=== PATIENT | female | born 1965 | race Caucasian/White ===

== ENCOUNTER 2017-07-09 15:16 | Outpatient (CLI) | payer OTHER ==
[2017-07-09 16:02] LABS: ALBUMIN 4.6 g/dL (3.2-5.5); ALBUMIN/GLOBULIN RATIO 1.5 (1.0-2.2); ALKALINE PHOSPHATASE 73 IU/L (42-121); ALT ALANINE AMINOTRANSFERASE 22 IU/L (10-60); AST ASPARTATE AMINOTRANSFERASE 23 IU/L (10-42); BILIRUBIN,TOTAL 0.7 mg/dL (0.2-1.0); BUN - BLOOD UREA NITROGEN 18 mg/dL (6-20); CALCIUM 9.5 mg/dL (8.5-10.3); CARBON DIOXIDE - CO2 25 mmol/L (21-32); CHLORIDE 99 mmol/L (101-111); CHOL/HDL RATIO 4.2 (<4.4); CHOLESTEROL 288 mg/dL; CREATININE 0.6 mg/dL (0.4-1.0); GFR - MDRD 105 (>89); GLUCOSE 102 mg/dL (70-100); HDL CHOLESTEROL 68 mg/dL; LDL CHOLESTEROL,CALCULATED 178 mg/dL; LDL/HDL RATIO 2.6 (<4.4); SODIUM 131 mmol/L (135-145); TOTAL PROTEIN 7.6 g/dL (6.7-8.2); VLDL CHOLESTEROL 42 mg/dL
[2017-07-09 16:03] LABS: HB2 TOTAL 15.4 g/dL; HEMOGLOBIN A1C 0.55 g/dL; HEMOGLOBIN A1C % 5.4 % (4.6-6.2)
[2017-07-09 16:07] LABS: BASOPHILS % (AUTO) 0.6 %; EOSINOPHILS # (AUTO) 0.1 10^3/uL (0.0-0.7); EOSINOPHILS % (AUTO) 1.2 %; LYMPHOCYTES # (AUTO) 1.9 10^3/uL (1.5-3.5); LYMPHOCYTES % (AUTO) 31.8 %; MEAN CORPUSCULAR HEMOGLOBIN 32.1 pg (27.0-31.0); MEAN CORPUSCULAR HGB CONC 33.6 g/dL (32.0-36.0); MEAN CORPUSCULAR VOLUME 95.7 fL (81.0-99.0); MEAN PLATELET VOLUME 8.8 fL (7.9-10.8); MONOCYTES # (AUTO) 0.5 10^3/uL (0.0-1.0); MONOCYTES % (AUTO) 8.3 %; NEUTROPHILS # (AUTO) 3.4 10^3/uL (1.5-6.6); NEUTROPHILS % (AUTO) 58.1 %; PLT - PLATELET COUNT 227 10^3/uL (130-450); RED BLOOD COUNT 4.37 10^6/uL (4.20-5.40); RED CELL DISTRIBUTION WIDTH 14.2 % (12.0-15.0); WHITE BLOOD COUNT 5.9 x10^3/uL (4.8-10.8)
== END 2017-07-09 15:17 | disposition home or self-care (01) ==
LOC: LAB 15:16
PROVIDERS: ATTEND Family Medicine
DX: I10 Essential (primary) hypertension (principal); R73.01 Impaired fasting glucose
CPT/HCPCS: 36415; 80053; 80061; 83036; 83721; 84443; 85025

== ENCOUNTER 2018-06-18 13:17 | Outpatient (CLI) | payer OTHER ==
[~2018-06-18 13:17] MED LIST: ALBUTEROL NEB 2.5 MG/3 ML INH ONE
== END 2018-06-18 13:18 | disposition home or self-care (01) ==
LOC: RT 13:17
PROVIDERS: ATTEND Physician Assistant
DX: R06.02 Shortness of breath (principal)
CPT/HCPCS: 94010; 94729

== ENCOUNTER 2019-05-20 07:00 | Outpatient (CLI) | payer OTHER ==
[2019-05-20 12:45] LABS: BASOPHILS % (AUTO) 0.7 %; EOSINOPHILS # (AUTO) 0.1 10^3/uL (0.0-0.7); EOSINOPHILS % (AUTO) 1.6 %; HGB - HEMOGLOBIN 13.5 g/dL (12.0-16.0); LYMPHOCYTES # (AUTO) 1.5 10^3/uL (1.5-3.5); LYMPHOCYTES % (AUTO) 26.1 %; MEAN CORPUSCULAR HEMOGLOBIN 31.5 pg (27.0-31.0); MEAN CORPUSCULAR HGB CONC 31.3 g/dL (32.0-36.0); MEAN CORPUSCULAR VOLUME 100.5 fL (81.0-99.0); MEAN PLATELET VOLUME 10.4 fL (7.9-10.8); MONOCYTES # (AUTO) 0.5 10^3/uL (0.0-1.0); MONOCYTES % (AUTO) 8.8 %; NEUTROPHILS # (AUTO) 3.6 10^3/uL (1.5-6.6); NEUTROPHILS % (AUTO) 62.3 %; PLT - PLATELET COUNT 247 10^3/uL (130-450); RED BLOOD COUNT 4.29 10^6/uL (4.20-5.40); RED CELL DISTRIBUTION WIDTH 13.2 % (12.0-15.0); WHITE BLOOD COUNT 5.7 x10^3/uL (4.8-10.8)
[2019-05-20 13:05] LABS: HB2 TOTAL 13.6 g/dL; HEMOGLOBIN A1C 0.49 g/dL; HEMOGLOBIN A1C % 5.4 % (4.6-6.2)
[2019-05-20 13:23] LABS: ALBUMIN 4.1 g/dL (3.2-5.5); ALBUMIN/GLOBULIN RATIO 1.2 (1.0-2.2); ALKALINE PHOSPHATASE 69 IU/L (42-121); ALT ALANINE AMINOTRANSFERASE 38 IU/L (10-60); AST ASPARTATE AMINOTRANSFERASE 35 IU/L (10-42); BILIRUBIN,TOTAL 0.4 mg/dL (0.2-1.0); BUN - BLOOD UREA NITROGEN 20 mg/dL (6-20); CALCIUM 9.1 mg/dL (8.5-10.3); CARBON DIOXIDE - CO2 24 mmol/L (21-32); CHLORIDE 105 mmol/L (101-111); CHOL/HDL RATIO 4.8 (<4.4); CHOLESTEROL 299 mg/dL; CREATININE 0.7 mg/dL (0.4-1.0); GFR - MDRD 88 (>89); GLUCOSE 108 mg/dL (70-100); HDL CHOLESTEROL 62 mg/dL; LDL CHOLESTEROL,CALCULATED 200 mg/dL; LDL/HDL RATIO 3.2 (<4.4); SODIUM 138 mmol/L (135-145); TOTAL PROTEIN 7.6 g/dL (6.7-8.2); VLDL CHOLESTEROL 37 mg/dL
== END 2019-05-20 23:59 | disposition home or self-care (01) ==
LOC: LAB.WCP 07:00
PROVIDERS: ATTEND Nurse Practitioner Family
DX: R73.01 Impaired fasting glucose (principal); I10 Essential (primary) hypertension; F32.9 Major depressive disorder, single episode, unspecified
CPT/HCPCS: 36415; 80053; 80061; 83036; 83721; 84443; 85025

== ENCOUNTER 2019-07-14 07:00 | Outpatient (CLI) | payer OTHER ==
[2019-07-14 17:24] LABS: CALCIUM 9.8 mg/dL (8.5-10.3); CREATININE 0.8 mg/dL (0.4-1.0)
== END 2019-07-14 23:59 | disposition home or self-care (01) ==
LOC: LAB.WCP 07:00
PROVIDERS: ATTEND Nurse Practitioner Family
DX: I10 Essential (primary) hypertension (principal)
CPT/HCPCS: 36415; 80048

== ENCOUNTER 2021-01-07 09:46 | Outpatient (CLI) | payer OTHER ==
--- NOTE | 2021-01-08 08:52 | Mammography Report ---
BILATERAL DIGITAL SCREENING MAMMOGRAM 3D/2D: 01/07/2021 CLINICAL: Routine screening. Comparison is made to exam dated: 08/16/2015 mammogram - [facility]. There are scat tered fibroglandular elements in both breasts. There is an irregular equal density global asymmetry with an indistinct margin in the left breast pos terior depth superior region seen on the mediolateral oblique view only. No other significant masses, calcifications, or other findings are seen in either breast. IMPRESSION: INCOMPLETE: NEEDS ADDITIONAL IMAGING EVALUATION The irregular equal density global asymmetry in the left breast is indeterminate. Mediolateral, exag gerated CC, and spot compression views as well as additional views with possible ultrasound are recom mended. This exam was interpreted at Station ID: [id number]. NOTE: For mammograms, a report in lay terms will be sent to the patient. Approximately 15% of breast malignancies will not be visualized mammographically. In the management of a palpable breast mass, a negative mammogram must not discourage biopsy of a clinically suspicious lesion. Electronically Signed By: Austin Alarcon M.D. ddp/:01/07/2021 10:55:46 ACR BI-RADS Category 0: Incomplete 3340F PARENCHYMAL PATTERN: (A) - The breast(s) demonstrate(s) scattered fibroglandular densities. BI-RADS CATEGORY: (0) - 0 Mammo and [place] [id number] Immediate follow-up LATERALITY: (B)
== END 2021-01-07 09:47 | disposition home or self-care (01) ==
LOC: DI.N 09:46
DX: Z12.31 Encounter for screening mammogram for malignant neoplasm of breast (principal); R92.8 Other abnormal and inconclusive findings on diagnostic imaging of breast

== ENCOUNTER 2021-03-01 11:03 | Outpatient (CLI) | payer OTHER ==
--- NOTE | 2021-03-04 15:22 | Mammography Report ---
UNILATERAL LEFT DIGITAL DIAGNOSTIC MAMMOGRAM 3D/2D: 03/01/2021 CLINICAL: Patient returns today to evaluate an asymmetry in the left breast. Comparison is made to exams dated: 01/07/2021 mammogram and 08/16/2015 mammogram - [facility]. There are scattered fibroglandular elements in left breast. The previously seen asymmetry in the left axillary tail/axilla is no longer present, possibly seconda ry to soft tissue edema (patient had left arm vaccination before the prior study) or artifact on the prior exam. No significant masses, calcifications, or other findings are seen in the breast. IMPRESSION: NEGATIVE There is no mammographic evidence of malignancy. A 1 year screening mammogram is recommended. This exam was interpreted at Station ID: [id number]. NOTE: For mammograms, a report in lay terms will be sent to the patient. Approximately 15% of breast malignancies will not be visualized mammographically. In the management of a palpable breast mass, a negative mammogram must not discourage biopsy of a clinically suspicious lesion. Electronically Signed By: Mateus thomas/[email or web address]:03/01/2021 11:55:01 ACR BI-RADS Category 1: Negative 3341F PARENCHYMAL PATTERN: (A) - The breast(s) demonstrate(s) scattered fibroglandular densities. BI-RADS CATEGORY: (1) - 1 RECOMMENDATION: (ANNUAL) - Recommend routine annual screening mammography. [id number] 1 year screening LATERALITY: (B)
== END 2021-03-01 11:04 | disposition home or self-care (01) ==
LOC: DI 11:03
PROVIDERS: ATTEND Family Medicine
DX: R92.8 Other abnormal and inconclusive findings on diagnostic imaging of breast (principal)

== ENCOUNTER 2021-06-29 20:38 | Emergency (ER) | payer OTHER ==
[2021-06-29 20:46] VITALS: BP 137/76
[2021-06-29] MEDS ORDERED: BUPIVACAINE 0.5% PF 10 ML VIAL SUBQ STA (21:02)
[2021-06-29] MEDS ORDERED: cefTRIAXone 1 GM VIAL IM STA (21:03)
[2021-06-29] MEDS ORDERED: TETANUS/DIPHTHERIA/PERTUSSIS 0.5 ML SYRINGE IM ONE (21:03)
--- NOTE | 2021-06-29 21:03 | ED Physician Documentation ---
History of Present Illness - Stated complaint Stated Complaint: R FINGER LAC - Chief complaint Chief Complaint: Ext Problem - Additonal information Additional information: 55-year-old female presents emergency department for evaluation of dog bite laceration to the distal tip of her right index finger. She was her dogs when her finger inadvertently got caught in it. She reports their shots is up-to-date. She is unsure of her own tetanus status. She is right-hand dominant. PD PAST MEDICAL HISTORY - Present Medications Home Medications: Ambulatory Orders Medication Instructions Recorded Confirmed Amox/Clav 875/125 [Augmentin] 1 each PO Q12H #14 tablet 06/29/21 - Allergies Allergies/Adverse Reactions: Allergies Allergy/AdvReac Type Severity Reaction Status Date / Time No Known Drug Allergies Allergy Verified 06/29/21 20:56 PD ED PE EXPANDED - Extremities Extremities: Right finger(s) (2 cm laceration distal dorsum of index finger as well as a 2 cm laceration volar surface distal index finger. Preserved flexion and extension against resistance. Normal sensation brisk cap refill) Results - Vitals Vitals: Vital Signs - 24 hr 06/29/21 20:41 Temperature 35.8 C L Heart Rate 84 Respiratory 18 Rate Blood Pressure 137/76 H O2 Saturation 97 Oxygen O2 Source Room air Procedures - Laceration (location) right index finger Length in cm: 4 Wound type: Irregular, Into subcut fat, Into muscle, Contaminated Neurovascular status: Sensory intact, Motor intact, Vascular intact Tendon involvement: Tendon intact Anesthesia: Marcaine 0.5% Wound preparation: Hibiclens, Irrigated copiously NS, Debrided moderately Skin layer closure: Nylon, Interrupted, Sutures - enter # (4) Other: Patient tolerated well, No complications, Tetanus UTD PD MEDICAL DECISION MAKING - ED course Complexity details: reviewed results, re-evaluated patient, considered differential, d/w patient ED course: 55-year-old female presents to the emergency department for evaluation of a dog bite laceration to the dorsum and volar surface of her distal right index finger. She was breaking up a dog fight between her 2 dogs at home. On presentation she has intact tendon function and preserved distal sensation. Given that these were dog bite injuries we did update her tetanus. We also copiously irrigated with saline after washing thoroughly with chlorhexidine. Patient was given ceftriaxone here in the emergency department and will be discharged with Augmentin. The wounds were simply tacked down but given the high risk of infection were not formally closed with more than 2 sutures of each puncture/laceration wound. Emergent return precautions were discussed for worsening pain or concerns of infection. Departure - Departure Disposition: 01 Home, Self Care Clinical Impression: Injury caused by dog bite Qualifiers: Encounter type: initial encounter Qualified Code(s): W54.0XXA - Bitten by dog, initial encounter Finger laceration Qualifiers: Encounter type: initial encounter Finger: index finger Damage to nail status: without damage Foreign body presence: without foreign body Laterality: right Qualified Code(s): S61.210A - Laceration without foreign body of right index finger without damage to nail, initial encounter Instructions: ED Bite Dog Ch Prescriptions: Amox/Clav 875/125 [Augmentin] 1 each PO Q12H #14 tablet Comments: Guerline you were seen today in the emergency department for 2 lacerations to the distal tip of your index finger after breaking up a dog fight. We simply tacked these lacerations down as dog bite wounds do carry a high risk of infection. We updated your tetanus today and it should be good for the next 7 to 10 years. Please fill the prescription for the Augmentin and begin taking twice daily for the next week. In general tomorrow you can gently remove your bandages wash with warm soap and water, apply any antibiotic ointment and then please reapply the splint to keep the finger in extension. This will allow the tissues to heal. In general ibuprofen and Tylenol [id number] should be adequate for pain control. Elevating the finger will also help reduce swelling and pain. If at any point you have concerns of infection such as fever, redness milky drainage increased pain then please return immediately to the ER for a second evaluation. Your prescriptions have been sent electronically to the [facility] in [place]
== END 2021-06-29 21:52 | disposition home or self-care (01) ==
LOC: ED 20:38
DX: S61.250A Open bite of right index finger without damage to nail, initial encounter (principal); W54.0XXA Bitten by dog, initial encounter; Y93.K9 Activity, other involving animal care
CPT/HCPCS: 12002; 90471; 99283

== ENCOUNTER 2021-08-21 06:56 | Outpatient (CLI) | payer OTHER ==
--- NOTE | 2021-08-21 08:56 | Ultrasound Report ---
PROCEDURE: Abdomen Complete INDICATIONS: ABD PAIN TECHNIQUE: Real-time scanning was performed of the abdominal and retroperitoneal organs, with image documentatio n. COMPARISON: None. FINDINGS: AORTA: The visualized abdominal aorta is normal. IVC: The visualized IVC is normal. LIVER: Measures 18.4 cm in length. Normal contour. Increased echogenicity. The portal vein is paten t. PANCREAS: The visualized portions of the pancreas are normal. Gallbladder and biliary tree: Within normal limits. The common bile duct measures 2.7 mm. RIGHT KIDNEY: Normal in appearance with no hydronephrosis. Measuring 11.1 cm in length. The renal c ortex thickness measures 1.5 cm. LEFT KIDNEY: Normal in appearance with no hydronephrosis. Measuring 11.5 cm in length. The renal co rtex thickness measures 1.5 cm. Spleen: Normal appearance measuring 9.5 cm No evidence for ascites. IMPRESSION: 1.Hepatic steatosis and hepatomegaly. Reviewed by: Casa Todd MD on 08/21/2021 8:55 AM PDT Approved by: Casa Todd MD on 08/21/2021 8:55 AM PDT Station ID: [id number]
== END 2021-08-21 06:57 | disposition home or self-care (01) ==
LOC: DI 06:56
PROVIDERS: ATTEND Family Medicine
DX: K76.0 Fatty (change of) liver, not elsewhere classified (principal); R16.0 Hepatomegaly, not elsewhere classified; Z80.0 Family history of malignant neoplasm of digestive organs

== ENCOUNTER 2023-04-20 08:52 | Day surgery (SDC) | payer OTHER ==
[2023-04-20] MEDS ORDERED: LACTATED RINGERS 1,000 ML IV ONE ×2 (09:00→11:58)
--- NOTE | 2023-04-20 09:04 | ANESTHESIA ---
Pre-Anesthesia VS, & Labs - Diagnosis sreening - Procedure colonoscopy Height: 5 ft 6 in - NPO Other (prep as directed) - Is Patient ?: No Home Medications and Allergies Home Medications: Ambulatory Orders Atorvastatin [Lipitor] 20 mg PO HS 04/17/23 Lisinopril/Hydrochlorothiazide [Zestoretic 20-25 mg Tablet] 1 tab PO DAILY 04/17/23 Naltrexone HCl 25 mg PO DAILY 04/17/23 traZODone [Desyrel] 50 mg PO HS PRN 04/17/23 Atorvastatin [Lipitor] 20 mg PO HS 04/17/23 Lisinopril/Hydrochlorothiazide [Zestoretic 20-25 mg Tablet] 1 tab PO DAILY 04/17/23 Naltrexone HCl 25 mg PO DAILY 04/17/23 traZODone [Desyrel] 50 mg PO HS PRN 04/17/23 Allergies/Adverse Reactions: Allergies Allergy/AdvReac Type Severity Reaction Status Date / Time No Known Drug Allergies Allergy Verified 06/29/21 20:56 Anes History & Medical History - Anesthetic History Anesthesia Complications: reports: No previous complications - Medical History Cardiovascular: reports: None Pulmonary: reports: Asthma Gastrointestinal: reports: Other (obese) Exam General: Alert, Oriented x3, No acute distress Dental: WNL Mouth Opening: Greater than 4 Fingerbreadths Neck Mobility: Normal Mallampati classification: III Thyromental Distance: greater than 6 cm Respiratory: Lungs clear Cardiovascular: Regular rate Plan Anesthesia Type: Total IV Consent for Procedure(s) Verified and Reviewed: Yes Code Status: Attempt Resuscitation ASA classification: 3-Severe systemic disease Is this case an emergency?: No
[2023-04-20] MEDS ORDERED: PROPOFOL 500 MG/50 ML 500 MG/50 ML VIAL ONE (11:12)
[2023-04-20 12:04] VITALS: O2SAT 96
[2023-04-20 12:25] VITALS: BP 134/75
--- NOTE | 2023-04-20 16:09 | ANESTHESIA POST OP EVALUATION ---
Anesthesia Post Eval - Post Anesthesia Eval Vitals: Last Vital Signs Temp 36.8 C 04/20/23 11:58 Pulse 82 04/20/23 12:23 Resp 16 04/20/23 12:23 BP 134/75 H 04/20/23 12:23 Pulse Ox 96 04/20/23 12:23 O2 Flow Rate CV Function Including HR & BP: Stable Pain Control: Satisfactory Nausea & Vomiting: Negative Mental Status: Baseline Respiratory Status: Airway Patent Hydration Status: Satisfactory Anesthesia Complications: None
== END 2023-04-20 08:53 | disposition home or self-care (01) ==
LOC: SDS 08:52
PROVIDERS: ATTEND Surgery
PROC: 0DBL8ZZ Excision of Transverse Colon, Via Natural or Artificial Opening Endoscopic (ICD-10-PCS; 2023-04-20)
PROC: 0DBN8ZZ Excision of Sigmoid Colon, Via Natural or Artificial Opening Endoscopic (ICD-10-PCS; principal; 2023-04-20 09:45)
DX: Z12.11 Encounter for screening for malignant neoplasm of colon (principal); D12.3 Benign neoplasm of transverse colon; D12.5 Benign neoplasm of sigmoid colon; K64.1 Second degree hemorrhoids; E66.9 Obesity, unspecified; Z68.38 Body mass index [BMI] 38.0-38.9, adult
CPT/HCPCS: 45380; 45385; J7120